=== PATIENT | female | born 1995 | race Caucasian/White ===

== ENCOUNTER 2018-09-08 02:08 | Inpatient (IN) | payer MEDICAID ==
[2018-09-08 02:37] LABS: APPEARANCE,URINE CLEAR; BILIRUBIN,URINE NEGATIVE (NEGATIVE); COLOR,URINE YELLOW; GLUCOSE, URINE NEGATIVE (NEGATIVE); KETONES,URINE NEGATIVE (NEGATIVE); LEUKOCYTE ESTERASE,URINE SMALL (NEGATIVE); NITRITE,URINE NEGATIVE (NEGATIVE); PROTEIN,URINE NEGATIVE (NEGATIVE); URINE SPECIFIC GRAVITY 1.023; UROBILINOGEN,URINE NEGATIVE mg/dL (<2.0)
[2018-09-08] MEDS ORDERED: LIDOCAINE 1% INJ-PF (10 MG/ML) 30 ML SDV ONE (02:52)
[2018-09-08] MEDS ORDERED: OXYTOCIN 10 UNIT/ML VIAL ONE (02:52)
[2018-09-08] MEDS ORDERED: MISOPROSTOL 0.2 MG TABLET ONE (02:52)
[2018-09-08] MEDS ORDERED: OXYTOCIN/NORMAL SALINE 20 UNIT/1,000 ML RTUINJ ONE (02:53)
[2018-09-08 03:12] LABS: URINE AMPHETAMINES SCREEN NEGATIVE; URINE BARBITURATES SCREEN NEGATIVE; URINE BENZODIAZEPINES SCREEN NEGATIVE; URINE COCAINE SCREEN NEGATIVE; URINE MARIJUANA (THC) SCREEN NEGATIVE; URINE METHADONE SCREEN NEGATIVE; URINE PHENCYCLIDINE SCREEN NEGATIVE
[2018-09-08 03:19] LABS: ABSOLUTE EOSINOPHILS # (AUTO) 0.3 10^3/uL (0.0-0.6); ABSOLUTE LYMPHOCYTES (AUTO) 1.5 10^3/uL (0.5-4.7); ABSOLUTE MONOCYTES (AUTO) 0.6 10^3/uL (0.1-1.4); ABSOLUTE NEUT (AUTO) 9.4 10^3/uL (1.7-8.2); BASOPHILS % (AUTO) 0.2 % (0-2); EOSINOPHILS % (AUTO) 2.1 % (0-6); HEMATOCRIT 34.3 % (36.0-47.0); HEMOGLOBIN 10.7 g/dL (12.0-15.5); LYMPHOCYTES % (AUTO) 12.8 % (13-45); MEAN CORPUSCULAR HEMOGLOBIN 20.7 pg (27.0-33.4); MEAN CORPUSCULAR HGB CONC 31.3 g/dL (32.0-36.0); MEAN CORPUSCULAR VOLUME 66 fl (80-97); MONOCYTES % (AUTO) 5.4 % (3-13); PLATELET COUNT 234 10^3/uL (150-450); RED CELL DISTRIBUTION WIDTH 15.1 % (11.5-14.0); SEGMENTED NEUTROPHILS % (AUTO) 79.5 % (42-78); TOTAL CELLS COUNTED % (AUTO) 100 %; WHITE BLOOD COUNT 11.9 10^3/uL (4.0-10.5)
[2018-09-08] MEDS ORDERED: EPHEDRINE SULFATE INJ 50 MG/1 ML AMPULE ONE (03:20)
[2018-09-08] MEDS ORDERED: FENTANYL/BUPIVACAINE/NS/PF 300 MCG/150 ML RTUINJ EPI ONE (03:21)
[2018-09-08] MEDS ORDERED: BUPIVACAINE HCL 0.25 % INJ/PF (2.5 MG/1 ML) 30 ML VIAL ONE (03:21)
--- NOTE | 2018-09-08 06:43 | Admission Physical ---
Datetime Report Generated by CPN: 09/08/2018 06:42 CURRENT ADMISSION Chief Complaint: Uterine Contractions; Suspected Ruptured Membranes Admit Impression : Term, Intrauterine ; Active Labor; Ruptured Membranes Admit Plan: Admit to Unit; Initiate Labor Protocol ALLERGIES Medication Allergies: No Medication Allergies: No Known Allergies (09/08/2018) Latex: Unknown OBSTETRICAL HISTORY EDC: 09/08/2018 00:00 : 1 Para: 0 Term: 0 : 0 SAB: 0 IAB: 0 Ectopic: 0 Livin Cesareans: 0 VBACs: 0 Multiple Births: 0 Obstetrical History Comments: G1- current SEE RECORDS Alcohol: No Marijuana : No Cocaine: No Other Illicit Drugs: No Cigarettes: Never Smoker. [id number] MEDICAL HISTORY Pulmonary Disease (Asthma, TB): Yes Hosp/Surgery: Yes Medical History Comments: asthma, ankle surgery PHYSICAL EXAM General: Normal HEENT: Normal Neurologic: Normal Thyroid: Deferred Heart: Normal Lungs: Normal Breast: Deferred Back: Normal Abdomen: Normal Genitourinary Exam: Normal Extremities: Normal DTRs: Normal Pelvic Type: Adequate Vital Signs: Reviewed VAGINAL EXAM Dilatation: 4 Effacement: 100 Station: -2 Contraction Comments: q 2-3 FETUS A EGA: 40.0 Monitoring: External US FHR- Baseline: 125 Variability: Moderate 6-25bpm Accelerations: 15X15 Decelerations: None Presentation: Vertex Admit Comment: 23yo at 40+0ega presents for SROM at approx 0230 with light meconium. ASCUS +HPV,Rubella NI - needs vaccination pp, Pt also with h/o asthma (albuterol and krishan). Admit to Labor and delivery for SROM in early active labor. GBS negative. o/w uncomplicated. Admit for labor and anticipate . PLANS FOR LABOR AND DELIVERY Labor and Delivery: None Pain Management: Epidural Feeding Preference: Breast Benefit of Breast Feed Discussed: Yes INFORMED CONSENT Informed Consent Obtained: Vaginal Delivery; Risks, Benefits and Alternatives Discussed Signature: with User ID: [email or web address]
[2018-09-08] MEDS ORDERED: RINGERS SOLUTION,LACTATED 1,000 ML IV ONE (07:22)
[2018-09-08] MEDS ORDERED: RINGERS SOLUTION,LACTATED 1,000 ML IV PRN (07:22)
[2018-09-08] MEDS ORDERED: PROMETHAZINE HCL INJ 25 MG/1 ML VIAL IV PRN (11:46)
[2018-09-08] MEDS ORDERED: ACETAMINOPHEN 650 MG SUPP.RECT PR PRN (11:46)
[2018-09-08] MEDS ORDERED: PROMETHAZINE HCL 25 MG TABLET PO PRN (11:46)
[2018-09-08] MEDS ORDERED: OXYTOCIN/NORMAL SALINE 20 UNIT/1,000 ML RTUINJ IV PRN (11:46)
[2018-09-08] MEDS ORDERED: GLYCERIN/WITCH HAZEL LEAF 1 EACH MED..WIPE TP PRN (11:46)
[2018-09-08] MEDS ORDERED: DIPHENHYDRAMINE HCL 25 MG CAPSULE PO PRN (11:46)
[2018-09-08] MEDS ORDERED: MAGNESIUM HYDROXIDE SUSP 30 ML UDCUP PO PRN (11:46)
[2018-09-08] MEDS ORDERED: MEASLES,MUMPS&RUBELLA VACC/PF 0.5 ML VIAL SUBCUT PRN (11:46)
[2018-09-08] MEDS ORDERED: DIBUCAINE 1% OINTMENT 56 GM TP PRN (11:46)
[2018-09-08] MEDS ORDERED: PSEUDOEPHEDRINE HCL 30 MG TABLET PO PRN (11:46)
[2018-09-08] MEDS ORDERED: DIPH/PERTUSS(ACELL)/TETANUS VAC/PF 0.5 ML SYR (>=10YO) IM PRN (11:46)
[2018-09-08] MEDS ORDERED: BENZOCAINE/MENTHOL AEROSOL SPRAY 56 ML TOP PRN (11:46)
[2018-09-08] MEDS ORDERED: PROMETHAZINE HCL 25 MG SUPP.RECT PR PRN (11:46)
[2018-09-08] MEDS ORDERED: NA PHOS,M-B/NA PHOS,DI-BA (ADULT) 133 ML ENEMA PR PRN (11:46)
--- NOTE | 2018-09-08 12:38 | Warning Signs in Babies ---
VOD Warning Signs Datetime Report Generated by [facility]: 09/08/2018 12:38 VOD#608 -Warning Signs in Babies: Viewed with Parent(s)/Family (09/08/2018 12:37:Geovanny Valencia RN)
[2018-09-08] MEDS: IBUPROFEN 800 MG TABLET PO SCH ×3 (13:39→21:39)
--- NOTE | 2018-09-08 16:00 | Delivery Summary ---
Del Sum A-C Datetime Report Generated by CPN: 09/08/2018 16:00 DELIVERY PERSONNEL DELIVERY PERSONNEL: [id number] Delivery Doctor:: Torrie Quiñones CNM Nurse Body Former Certified:: Radha Vann CNM Labor and Delivery Nurse:: Geovanny Valencia RNinspector structural bonding Nurse:: PRIYANK Cruz Supply Tech:: Geovanny Valencia RN Nursery Nurse:: Anjali Patel LPN Tobacco Stripping Machine Operator/STAVE MILL HAND: Enma James [employer] C[employer]TER Tobacco Stripping Machine Operator/STAVE MILL HAND: Leilani Walsh, VENEER CUTTER MATERNAL INFORMATION Delivery Anesthesia: Epidural Medications After Delivery: Pitocin Bolus-Please Comment; Pitocin Drip 20 Units/1000ml NSS Maternal Complications: None Complication Details: meconium fluid Provider Comments: pt progressed to c/c/+3 called into room and pt quickly delivered a vmi. Baby with vigorous respiratory effort and cry with tactile stimulation. Large amount of meconium nasally and terminal meconium with delivery. Baby placed on maternal abdomen, cord allowed to stop pulsating then clamped x2 and cut by FOB (voided x2,3vc, marginal cord insertion, cord blood obtained). Placenta delivered spontaneously intact, vaginal and perineal inspection revealed laceration as stated. Fundus firm, minimal bleeding after several clots out. Mother and baby remain skin to skin and bonding at this time. LABOR SUMMARY EDC: 09/08/2018 00:00 No. Babies in Womb: 1 Attempted: No Labor Anesthesia: Epidural LABOR INFORMATION Reason for Induction: Not Applicable Onset of Labor: 09/08/2018 02:30 Complete Dilatation: 09/08/2018 10:59 Oxytocin: Induction Group B Beta Strep: Negative Antibiotics # of Doses: 0 Antibiotics Time of Last Dose: 0 Name of Antibiotic Given: 0 Steroids Given: None Reason Steroids Not Administered: Not Applicable MEMBRANES Membranes Rupture Method: Spontaneous Rupture of Membranes: 09/08/2018 02:30 Length of Rupture (hr): 8.77 Amniotic Fluid Color: Light Meconium Amniotic Fluid Amount: Small Amniotic Fluid Odor: None STAGES OF LABOR Stage 1 hr: 8 Stage 1 min: 29 Stage 2 hr: 0 Stage 2 min: 17 Stage 3 hr: 0 Stage 3 min: 6 Total Time in Labor hr: 8 Total Time in Labor min: 52 VAGINAL DELIVERY Episiotomy: None Laceration #1: Vaginal Laceration Extension #1: First Degree Laceration Repair: Not Applicable Laceration Repair Note: n/a, hemostatic no need for repair Sponge Count Correct: Yes Sharps Count Correct: Yes CSECTION DELIVERY Primary Indication: N/A Secondary Indication: N/A CSection Incidence: N/A Labor: N/A Elective: N/A BABY A INFORMATION Delivery Date/Time: 09/08/2018 11:16 Method of Delivery: Vaginal Born in Route : No : N/A Forceps: N/A Vacuum Extraction: N/A Shoulder Dystocia : No PRESENTATION/POSITION BABY A Presentation: Cephalic Cephalic Presentation: Vertex Vertex Position: Left Occipital Anterior Breech Presentation: N/A PLACENTA INFORMATION BABY A Placenta Delivery Time : 09/08/2018 11:22 Placenta Method of Delivery: Spontaneous Placenta Status: Delivered SCORES BABY A Heart Rate 1 min: >100 bpm Resp Effort 1 min: Good Cry Reflex Irritability 1 min: Cough or Sneeze or Pulls Away Muscle Tone 1 min: Some Flexion of Extremities Color 1 min: Body [place], Extremities Blue Resuscitation Effort 1 min: Tactile Stimulation SCORE 1 MIN: 8 Heart Rate 5 min: >100 bpm Resp Effort 5 min: Good Cry Reflex Irritability 5 min: Cough or Sneeze or Pulls Away Muscle Tone 5 min: Active Motion Color 5 min: Body [place], Extremities Blue Resuscitation Effort 5 min: Tactile Stimulation SCORE 5 MIN: 9 INFANT INFORMATION BABY A Gestational Age at Delivery: 40.0 Gestational Status: Full Term- 39- 40.6 Weeks Outcome : Liveborn Condition : Stable Infant Sex: Male IDENTIFICATION BABY A Verification Date/Time: 09/08/2018 11:40 ID Band Number: [id number] Mother's Name Verified: Yes Infant RN Verifying : Adarsh Valencia, RN and A. Jonathan, VENEER CUTTER WEIGHT/LENGTH BABY A Infant Birthweight (gm): 3046 Infant Weight (lb): 6 Infant Weight (oz): 11 Length (in): 20.00 Infant Length (cm): 50.80 CORD INFORMATION BABY A No. Cord Vessels: 3 Nuchal Cord : N/A Cord Blood Taken: Yes-For Eval (Mom's Blood Type - or O+) Suction: Mouth; Nose ASSESSMENT BABY A Skin to Skin: Yes BABY B INFORMATION : N/A SIGNATURES Assignment: Sarah Hinds MD Signature: with User ID: Baron : with User ID: Baron
[2018-09-08] MEDS: DOCUSATE SODIUM 100 MG CAPSULE PO SCH (17:55)
[2018-09-08] MEDS: FERROUS SULFATE 325 MG TABLET PO SCH (17:55)
[2018-09-08] MEDS: FAMOTIDINE 20 MG TABLET PO SCH (21:40)
[2018-09-09] MEDS: IBUPROFEN 800 MG TABLET PO SCH ×3 (06:22→22:59)
[2018-09-09 06:25] LABS: HEMATOCRIT 27.9 % (36.0-47.0); HEMOGLOBIN 8.8 g/dL (12.0-15.5); MEAN CORPUSCULAR HEMOGLOBIN 20.9 pg (27.0-33.4); MEAN CORPUSCULAR HGB CONC 31.6 g/dL (32.0-36.0); MEAN CORPUSCULAR VOLUME 66 fl (80-97); PLATELET COUNT 190 10^3/uL (150-450); RED BLOOD COUNT 4.22 10^6/uL (3.72-5.28); WHITE BLOOD COUNT 9.5 10^3/uL (4.0-10.5)
[2018-09-09] MEDS: SENNOSIDES/DOCUSATE 8.6-50 MG 1 EACH TABLET PO SCH (10:23)
[2018-09-09] MEDS: FAMOTIDINE 20 MG TABLET PO SCH ×2 (10:23→23:12)
[2018-09-09] MEDS: PRENATAL VITAMIN W DHA CAPSULE PO SCH (10:23)
[2018-09-09] MEDS: DOCUSATE SODIUM 100 MG CAPSULE PO SCH ×2 (10:23→18:19)
[2018-09-09] MEDS: FERROUS SULFATE 325 MG TABLET PO SCH ×2 (10:23→18:19)
--- NOTE | 2018-09-09 12:39 | PDOC PROGRESS REPORT ---
Subjective-OB Progress Note for:: 09/09/18 Subjective: Pt doing well, no complaints. She reports light bleeding, reg diet and voiding without difficulty. Physical Exam (OB) Vital Signs: Temp Pulse Resp BP Pulse Ox 98.3 F 77 15 105/66 100 09/09/18 07:30 09/09/18 07:30 09/09/18 07:30 09/09/18 07:30 09/09/18 07:30 Intake & Output 09/08/18 09/09/18 09/10/18 06:59 06:59 06:59 Intake Total 400 480 Balance 400 480 Weight 75.4 kg - PIH/Pre-Eclampsia Clonus: Negative Headache: Absent Epigastric Pain: No Visual Changes: No - Lochia Lochia Amount: Scant < 10 ml Lochia Color: Rubra/Red - Abdomen Description: Tender, Soft, Round Hernia Present: No Fundal Description: Firm, Midline Fundal Height: u/u - u/2 Objective-Diagnostic Laboratory: 09/09/18 06:08 09/09/18 06:08 WBC 9.5 RBC 4.22 Hgb 8.8 L Hct 27.9 L MCV 66 L MCH 20.9 L MCHC 31.6 L RDW 15.0 H Plt Count 190 Assessment and Plan(PN) - Assessment and Plan (1) Delivery normal Is this a current diagnosis for this admission?: Yes (2) Meconium in amniotic fluid Is this a current diagnosis for this admission?: Yes (3) Spontaneous rupture of membranes Is this a current diagnosis for this admission?: Yes - Time Spent with Patient Time with patient: Less than 15 minutes Medications reviewed and adjusted accordingly: Yes - Disposition Anticipated Discharge: Home Within: within 24 hours
[2018-09-09] MEDS ORDERED: ACETAMINOPHEN WITH CODEINE #3 TABLET ONE (20:13)
[2018-09-09] MEDS ORDERED: ACETAMINOPHEN WITH CODEINE #3 TABLET PO PRN ×2 (20:41→20:55)
[2018-09-10] MEDS: IBUPROFEN 800 MG TABLET PO SCH ×2 (06:21→14:39)
--- NOTE | 2018-09-10 09:54 | PDOC PROGRESS REPORT ---
Subjective-OB Progress Note for:: 09/10/18 Subjective: Ready to go home. Physical Exam (OB) Vital Signs: Temp Pulse Resp BP Pulse Ox 97.9 F 90 14 114/62 99 09/10/18 07:26 09/10/18 07:26 09/10/18 07:26 09/10/18 07:26 09/10/18 07:26 Intake & Output 09/09/18 09/10/18 09/11/18 06:59 06:59 06:59 Intake Total 400 1080 480 Balance 400 1080 480 - PIH/Pre-Eclampsia Clonus: Negative Headache: Absent Epigastric Pain: No Visual Changes: No - Lochia Lochia Amount: Scant < 10 ml Lochia Color: Rubra/Red - Abdomen Description: Soft, Round Hernia Present: No Bowel Sounds: Normoactive Flatus Presence: Present Stool: No Fundal Description: Firm, Midline Fundal Height: u/u - u/2 Objective-Diagnostic Laboratory: 09/09/18 06:08 Assessment and Plan(PN) - Time Spent with Patient Medications reviewed and adjusted accordingly: Yes - Disposition Anticipated Discharge: Home
--- NOTE | 2018-09-10 09:58 | PDOC DISCHARGE SUMMARY ---
Final Diagnosis Discharge Date: 09/10/18 Discharge Data - Discharge Medication Home Medications: Albuterol Sulfate [Proair HFA Inhalation Aerosol 8.5 gm MDI] 1 puff NASL PRN PRN 09/08/18 Prenat 115/Iron Fum/Folic/Dss [ 19 Tablet] 1 tab PO DAILY 09/08/18 Docusate Sodium [Colace 100 mg Capsule] 100 mg PO BID capsule 09/10/18 Ferrous Sulfate [Feosol 325 mg Tablet] 325 mg PO BID tablet 09/10/18 Gestational Age: 40.0 wks Reason(s) for Admission: Onset of Labor Procedures: Ultrasound Intrapartum Procedure(s): Spontaneous Vaginal Delivery - Data Baby 1 Male at 1 minute: 8 at 5 minutes: 9 Weight: 3.033 kg Home with Mother: Yes Complications: No - Diagnosis Test Laboratory: Temp Pulse Resp BP Pulse Ox 97.9 F 90 14 114/62 99 09/10/18 07:26 09/10/18 07:26 09/10/18 07:26 09/10/18 07:26 09/10/18 07:26 09/08/18 09/08/18 09/09/18 02:15 03:04 06:08 RBC 5.20 4.22 Hgb 10.7 L 8.8 L Hct 34.3 L 27.9 L Urine Opiates Screen NEGATIVE - Discharge information/Instructions Discharge Activity: Activity As Tolerated, Balance Activity w/Rest, Pelvic Rest, Slowly Increase Activity, No tub bath Discharge Diet: Regular Disposition: HOME, SELF-CARE Follow up with: [facility] in: 4, Weeks
[2018-09-10] MEDS: SENNOSIDES/DOCUSATE 8.6-50 MG 1 EACH TABLET PO SCH (10:56)
[2018-09-10] MEDS: DOCUSATE SODIUM 100 MG CAPSULE PO SCH ×2 (10:56→17:58)
[2018-09-10] MEDS: FERROUS SULFATE 325 MG TABLET PO SCH ×2 (10:56→17:58)
[2018-09-10] MEDS: FAMOTIDINE 20 MG TABLET PO SCH (10:56)
[2018-09-10] MEDS: PRENATAL VITAMIN W DHA CAPSULE PO SCH (10:56)
[2018-09-10 12:05] VITALS: BP 111/59
== END 2018-09-10 18:02 | disposition home or self-care (01) | DRG 807 ==
LOC: EDBD 02:08 → LC 02:08 → LR 02:45 → 2S 13:32
PROVIDERS: ADMIT Student in an Organized Health Care Education/Training Program; ATTEND Student in an Organized Health Care Education/Training Program
PROC: 10E0XZZ Delivery of Products of Conception, External Approach (ICD-10-PCS; principal; 2018-09-08)
PROC: 3E033VJ Introduction of Other Hormone into Peripheral Vein, Percutaneous Approach (ICD-10-PCS; 2018-09-08)
PROC: 4A1HXCZ Monitoring of Products of Conception, Cardiac Rate, External Approach (ICD-10-PCS; 2018-09-08)
PROC: 3E0234Z Introduction of Serum, Toxoid and Vaccine into Muscle, Percutaneous Approach (ICD-10-PCS; 2018-09-10)
DX: O43.123 Velamentous insertion of umbilical cord, third trimester (principal); Z37.0 Single live birth; O77.0 Labor and delivery complicated by meconium in amniotic fluid; Z23 Encounter for immunization; Z3A.40 40 weeks gestation of pregnancy
CPT/HCPCS: 36415; 80307; 81005; 85025; 85027; 86592; 86850; 86900; 86901; 88307; 90707; J2590; J3010; J3490

== ENCOUNTER → 2019-07-05 | Outpatient (CLI) | payer SELFPAY ==
[2019-07-05 13:12] LABS: A TYPE INFLUENZA AG POSITIVE (NEGATIVE); B INFLUENZA AG POSITIVE (NEGATIVE)
== END ==
LOC: RDC 12:00
PROVIDERS: ATTEND Registered Nurse
DX: Z20.828 Contact with and (suspected) exposure to other viral communicable diseases (principal)
CPT/HCPCS: 87070; 87804; 87880

== ENCOUNTER → 2020-03-29 | Outpatient (CLI) | payer SELFPAY ==
--- NOTE | 2020-03-30 13:00 | RADIOLOGY REPORT (SQ) ---
EXAM DESCRIPTION: U/S [id number] TRNABD 1GES W/ODOP IMAGES COMPLETED DATE/TIME: 03/29/2020 3:17 pm REASON FOR STUDY: (Z34.81)ENCOUNTER FOR SUPRVSN OF NORMAL , FIRST TRIMESTER Z34.81 ENCOUNT ER FOR SUPRVSN OF NORMAL , FIRST TRIM COMPARISON: None. TECHNIQUE: Transabdominal static and realtime grayscale images acquired of the pelvis. Additional se lected spectral and color Doppler images recorded. All images stored on PACs. bHCG: Not available. CLINICAL DATES: LMP 02/09/2020 7 weeks 0 days LIMITATIONS: None. FINDINGS: FETUS: Single Living intrauterine . ULTRASOUND EGA: 7 weeks 0 days ULTRASOUND BAO: 11/15/2020 EFW: Not applicable less than 20 weeks. CRL: 0.95 cm. FHR: 126 beats per minute. SURVEY: No visualized anomalies. AMNIOTIC FLUID: Adequate amount. PLACENTA: Not yet developed due to early gestation. SUBCHORIONIC BLEED: No SIZE OF BLEED: Not applicable. UTERUS: No masses. No anomalies. CERVICAL LENGTH: 2.2 cm. Closed. RIGHT ADNEXA: Normal ovary with normal vascular flow. 2.4 x 2.4 x 2.2 cm. No adnexal free fluid. No adnexal masses. LEFT ADNEXA: Normal ovary with normal vascular flow. 1.6 x 1.4 x 1.6 cm. No adnexal free fluid. No adnexal masses. FREE FLUID: None. OTHER: No other significant finding. IMPRESSION: LIVING INTRAUTERINE . EGA 7 weeks 0 days. Trimester of : First trimester - 0 to 13 weeks. TECHNICAL DOCUMENTATION: JOB ID: [id number] [employer]- All Rights Reserved rev-08/29 Reading location - IP/workstation name: [email or web address]
== END ==
LOC: RAD 14:50
PROVIDERS: ATTEND Nurse Practitioner Family
DX: Z34.81 Encounter for supervision of other normal pregnancy, first trimester (principal); Z3A.01 Less than 8 weeks gestation of pregnancy
CPT/HCPCS: 76801